=== PATIENT | female | born 1985 | race Hispanic/Latino ===

== ENCOUNTER 2020-02-21 08:41 | Emergency (ER) | payer OTHER, SELFPAY ==
--- OUTSIDE RECORDS SUMMARY | 2020-02-21 08:43 | XMS REPORT | Continuity of Care Document ---
:1985 Author Organization [facility] t Address [address] [place] [address] Care Team Providers Name Role Phone Unavailable Unavailable Unavailable Payers Payer Name Policy Type Policy Number Effective Date Expiration Date S ource Problems This patient has no known problems. Allergies, Adverse Reactions, Alerts Allergy Allergy Status Severity Reaction(s) Onset Inactive Treating Comm ents Source Name Type Date Date Clinician No Known DA Active [facility] Allergie 10-03 Clear s 00:00: Del Cid 00 [facility] Medications This patient has no known medications. Procedures This patient has no known procedures. Encounters Start End Encounter Admission Attending Care Care Encounter Source Date/Time Date/Time Type Type Clinicians Facility Department ID 2019-01-24 2019-01-24 Emergency E [facility] 7[address] [facility] 12:49:00 12:49:00 [facility] Results Test Description Test Time Test Comments Results Result Comments Source RPR SCREEN 2019-03-11 18:37:00 Test Item Value Reference Range Interpretation Comme nts SCREEN RPR (test code = NONREACTIVE NONREACTIVE SCRN RPR) NR = NON-REACTI VE R = REACTIVE ER SCREEN FOR HIV 14:05:00 Test Item Value Reference Range Interpretation Comments HIV 1/2 AB (test NEGATIVE NEGATIVE This test i s used for code = SCRN HIV) SCREENING p urposes only. All reactive re sults are prelimenary and confirmation re sults will follow. HEPATITIS C ANTIBODY [id number] 11:47:00 Test Item Value Reference Range Interpretation Comments SCRN HCV (test code NEGATIVE NEGATIVE Hepatiti s C Antibody test = SCRN HCV) is for screenin g purposes only. All react adrien will be confirmed by additional test ing. % HEMOGLOBIN A1C (GLYCATED)2019-03-11 08:17:00 Test Item Value Reference Range Interpretation Comments HEMOGLOBIN A1C (test 5.4 % 0-6 TH ERAPEUTIC TARGET code = GLYCO-) FOR THE TREAT MENT OF DIABETES M DAVE PATIENTS IS < 7 % HBA1C. [facility] 2002;25:S33-S49 LIPID [id number] 07:53:00 Test Item Value Reference Range Interpretation Comments CHOLEST (test code = 195 MG/DL 0-200 CHOLEST) TRIGLYCE (test code = 124 MG/DL 0-150 TRIGLYCE) HDL (test code = HDL) 68 MG/DL 35-90 NEGATI VE RISK FACTOR FOR HEART DISEA SE IF HDL >/=60 mg/dl MAJOR RISK FACTOR FOR HEART DISEASE IF HDL <40 mg/dL CALC LDL (test code = 102 MG/DL <100 H CALC LDL) - XR FOOT 3 + V [id number] 14:59:00 FAX: Goldy Mason [phone] [place]: St: REG Name: RANJIT HERRERA [facility] : 1985 Age/S: 34/F [address] [place] [address] Blvd Unit#: [id number] Loc: [place] [address] Phys: Goldy Mason Acct: [id number] Dis Date: Status: REG ER PHONE #: [phone] Exam Date: 01/23/2019 1452 FAX #: [phone] Reason: medial foot swelling, possible fall EXAMS: CPT CODE: [id number] XR FOOT 3 + [place] [address] LEFT FOOT, 3 VIEWS: HISTORY: Acute left foot swelling. COMPARISON EXAMS: None available. FINDINGS: Mild soft tissue swelling is identified in the forefoot. No evidence of fracture or dislocation. IMPRESSION: Soft tissue swelling without acute bony abnormality. SL:01 at 6404 Reported and signed by: Candi Alves M.D. CC: Goldy ESCOBAR Technologist: RT Mook(Isabell) Trnscrd Date/Time/By: 01/23/2019 (4740) : By: [email or web address] Orig Print D/T: S: 01/23/2019 (6099) PAGE 1 Signed Report- XR HIP W/PEL UNI 2+V [id number] 14:57:00 FAX: Luz Zaragoza MD [phone] [place]: St: REG FAX: Goldy Mason [phone] Name: RANJIT HERRERA [facility] : 1985 Age/S: 34/F [address] [place] [address] Unit #: [id number] Loc: [place] [address] Phys: Goldy Mason Acct: [id number] Dis Date: Status: REG ER PHONE #: [phone] Exam Date: 01/23/2019 1451 FAX #: [phone] Reason: L hip pain, possible fall EXAMS: CPT CODE: [id number] XR HIP W/PEL UNI 2+[place] [address] Clinical Indication: Left hip pain, possible fall. Comparison: None available. Impression: Single view of the pelvis and additional view of the left hip. No acute fracture or dislocation. Soft tissues are unremarkable. SL: [id number] at 1457 Reported and signed by: Carri Golden M.D. CC: Luz Lugo MD; Goldy ESCOBAR Technologist: ORALIA Delvalle) Trnscrd Date/Time/By: 01/23/2019 (6775) : By: [email or web address] Orig Print D/T: S: 01/23/2019 (9615) PAGE 1 Signed Report- XR KNEE 1 OR 2 V [id number] 14:55:00 FAX: Luz Zaragoza MD [phone] [place]: St: REG FAX: Goldy Mason [phone] Name: RANJIT HERRERA [facility] : 1985 Age/S: 34/F [address] [place] [address] Unit #: [id number] Loc: [place] [address] Phys: Goldy Mason Acct: [id number] Dis Date: Status: REG ER PHONE #: [phone] Exam Date: 01/23/2019 1451 FAX #: [phone] Reason: tingling L sided knee swelling, possible fall EXAMS: CPT CODE: [id number] XR KNEE 1 [place] 2 [place] [address] LEFT KNEE 2 VIEWS 01/23/2019 COMPARISON: None CLINICAL HISTORY: tingling L sided kneeswelling, possible fall FINDINGS: No acute fracture or dislocation is noted. No lytic or blastic lesion is seen. No significant joint space narrowing noted. No significant knee joint effusion is seen. CONCLUSION: No acute osseous ab normality. at 4333 Reported and signed by: Steve Mo M.D. CC: Luz Lugo MD; Goldy ESCOBAR Technologist: Terri Yanez RT(R) Trnscrd Date/Time/By: 01/23/2019 (6373) : By: [email or web address] PAGE 1 Signed Report- CT L-SPINE W/O [id number] 14:41:00 Name: RANJIT HERRERA [facility] [place] : 1985 Age/S: 34 / F [address] [place] [address] Unit #: [id number] Loc: [id number] Phys: Goldy Mason Acct: [id number] Dis Date: Status: REG ER PHONE #: [phone] Exam Date: 01/23/2019 1417 FAX #: [phone] Reason: midlinepain, paresthesias to L knee, tibia cody EXAMS: CPTCODE: [id number] CT L-SPINE W/O CONTRAST [address]338 CT lumbar spine without contrast 01/23/2019 HISTORY: Midline pain. Paresthesias to left knee PROCEDURE: Multiple axial images from the lower thoracic spine to the mid sacrum were obtained without contrast. Coronal and sagittal reconstructed images were performed FINDINGS: There is normal alignment and curvature of the lumbar spine. Vertebral body heights and intervertebral disc spaces are maintained. There is no lucency to suggest an acute fracture. No aggressive lesion is present. No dislocation is present. No prevertebral orparavertebral soft tissue swelling is noted. There is no significant spinal canal stenosis orneural foraminal narrowing at any level throughout the lumbar spine. Nonspecific gas within the sacroiliac joints is noted. IMPRESSION: 1. No acute process involving lumbar spine. No fracture or dislocation. 2. No significant spinal canal stenosis or neural foraminal narrowing at any level throughout the lumbar spine. SL: [id number] at 1446 Reported and signed by: Richard Mccollum M.D. CC: Luz Lugo MD; Goldy ESCOBAR Technologist:RT Karen(R)(CT) CTDI: DLP: Trnscb Date/Time: 01/23/2019 (6402) [email or web address] Orig Print D/T: S: 01/23/2019 (9444) PAGE 1 Signed ReportCOMPREHENSIVE METABOLIC [id number] 14:00:00 Test Item Value Reference Range Interpretation Comments SODIUM (test code = NA) 141 mEq/L 134-147 N POTASSIUM (test code = 3.8 mEq/L 3.4-5.0 N K) CHLORIDE (test code = 108 mEq/L 100-108 N CL) CARBON DIOXIDE (test 29 mEq/L 21-33 N code = CO2) ANION GAP (test code = 8 0-20 N GAP) GLUCOSE (test code = 89 mg/dL 70-110 N GLU) BLOOD UREA NITROGEN 10 mg/dL 7-18 N (test code = BUN) GLOMERULAR FILTRATION 141.2 105-110 H Units of measure = RATE (test code = GFR) ml/mi n/1.73 m2 CREATININE (test code = 0.5 mg/dL 0.6-1.3 L CREAT) TOTAL PROTEIN (test 6.9 g/dL 6.4-8.2 N code = PROT) ALBUMIN (test code = 3.20 g/dL 3.4-5.0 L ALB) CALCIUM (test code = 8.4 mg/dL 8.0-10.5 N CA) BILIRUBIN TOTAL (test 0.2 MG/DL <1.5 N code = BILT) SGOT/AST (test code = 23 IUnit/L 15-37 N AST) SGPT/ALT (test code = 23 IUnit/L 15-65 N ALT) ALKALINE PHOSPHATASE 55 IUnit/L 20-125 N TOTAL (test code = ALKP) [id number] 14:00:00 Test Item Value Reference Range Interpretation Comments LIPASE (test code = LIP) 72 IUnit/L 73-393 L HCG SERUM [id number] 14:00:00 Test Item Value Reference Range Interpretation Comments HCG SERUM QUAL (test code = SERUM NEGATIVE NEGATIVE HCGQL) COMPREHENSIVE METABOLIC [id number] 13:46:00 Test Item Value Reference Range Interpretation Comments SODIUM (test code = NA) mEq/L 134-147 POTASSIUM (test code = K) mEq/L 3.4-5.0 CHLORIDE (test code = CL) mEq/L 100-108 CARBON DIOXIDE (test code = CO2) mEq/L 21-33 ANION GAP (test code = GAP) 0-20 GLUCOSE (test code = GLU) mg/dL 70-110 BLOOD UREA NITROGEN (test code = mg/dL 7-18 BUN) GLOMERULAR FILTRATION RATE (test 105-110 code = GFR) CREATININE (test code = CREAT) mg/dL 0.6-1.3 TOTAL PROTEIN (test code = PROT) g/dL 6.4-8.2 ALBUMIN (test code = ALB) g/dL 3.4-5.0 CALCIUM (test code = CA) mg/dL 8.0-10.5 BILIRUBIN TOTAL (test code = BILT) MG/DL <1.5 SGOT/AST (test code = AST) IUnit/L 15-37 SGPT/ALT (test code = ALT) IUnit/L 15-65 ALKALINE PHOSPHATASE TOTAL (test IUnit/L 20-125 code = ALKP) [id number] 13:46:00 Test Item Value Reference Range Interpretation Comments LIPASE (test code = LIP) IUnit/L 73-393 HCG SERUM [id number] 13:46:00 Test Item Value Reference Range Interpretation Comments HCG SERUM QUAL (test code = SERUM NEGATIVE NEGATIVE HCGQL) URINALYSIS [id number] 13:42:00 Test Item Value Reference Range Interpretation Comments UA COLOR (test code = COLU) YELLOW YEL/STRAW UA APPEARANCE (test code = APPU) CLEAR CLEAR UA GLUCOSE DIPSTICK (test code = NEGATIVE NEGATIVE DGLUU) UA BILIRUBIN DIPSTICK (test code NEGATIVE NEGATIVE = BILU) UA KETONE DIPSTICK (test code = NEGATIVE NEGATIVE KETU) UA SPECIFIC GRAVITY (test code = 1.010 1.005-1.030 N SGU) UA BLOOD DIPSTICK (test code = 3+ NEGATIVE A MACRINA) UA PH DIPSTICK (test code = KANDIS) 6.0 5.0-7.0 N UA PROTEIN DIPSTICK (test code = NEGATIVE NEGATIVE PROU) UA UROBILINIOGEN DIPSTICK (test 0.2 mg/dL 0.2-1.0 code = URO) UA NITRITE DIPSTICK (test code = NEGATIVE NEGATIVE REINA) UA LEUKOCYTE ESTERASE DIPSTICK 1+ NEGATIVE A (test code = LEUU) UA RBC (test code = RBCU) 4-10 RBC/HPF 0-3 UA WBC NO REFLEX (test code = 4-9 WBC/HPF 0-3 A WBCUCL) UA BACTERIA (test code = BACU) TRACE /HPF NONE SEEN UA SQUAMOUS CELLS (test code = 6-10 /HPF NONE SEEN A SQU) PROTHROMBIN [id number] 13:41:00 Test Item Value Reference Range Interpretation Comments PROTHROMBIN TIME 11.3 SECONDS 9.3-12.9 N PATIENT (test code = PTP) INTERNATIONAL NORMAL 1.0 0.8-1.2 N TARGET RATIO (test code = INR BY IN DICATION INR) Indication INR1. Prophyl axis of venous thrombos is 2.0 - 3. 0 (orthopedic kapil brigitte), Prophylaxis of venous thrombos is (other than hig h-risk surgery), Mickie tment of Deep Vein Thrombosis/Pulm onary Embolism, Preve ntion of systemic emb olism - Tissue heart va lves, Acute Myocardia l Infarction (to prevent systemic embo lism), Valvular heart disease, Atri al Fibrillation, Bileaflet mecha nical valve in aortic position.2. Mec hanical prosthetic valv es (high risk), 2.5 - 3.5 Presence of Lupus Anticoagu lant or Antiphospholi pid Antibodies, Pre vention of systemic e mbolism - Acute Myocard ial Infarction (t o prevent recurre nt infarct). CBC W/AUTO [id number] 13:36:00 Test Item Value Reference Range Interpretation Comments WHITE BLOOD CELL (test code = 9.63 x10 3/uL 4.5-11.0 N WBC) RED BLOOD CELL (test code = 3.81 x10 6/uL 3.54-5.02 N RBC) HEMOGLOBIN (test code = HGB) 11.0 g/dL 11.0-15.0 N HEMATOCRIT (test code = HCT) 34.6 % 33.0-45.0 N MEAN CELL VOLUME (test code = 90.8 fL 81.0-99.0 N MCV) MEAN CELL HGB (test code = MCH) 28.9 pg 27.0-33.0 N MEAN CELL HGB CONCETRATION 31.8 g/dL 33.0-37.0 L (test code = MCHC) RED CELL DISTRIBUTION WIDTH CV 13.1 % 11.5-14.5 N (test code = RDW) RED CELL DISTRIBUTION WIDTH SD 42.9 fL 37.0-54.0 N (test code = RDW-SD) PLATELET COUNT (test code = 250 x10 3/uL 150-400 N PLT) MEAN PLATELET VOLUME (test code 11.0 fL 7.0-9.0 H = MPV) NEUTROPHIL % (test code = NT%) 57.2 % 56.0-77.0 N IMMATURE GRANULOCYTE % (test 0.3 % 0.0-2.0 N code = IG%) LYMPHOCYTE % (test code = LY%) 23.8 % 14.0-32.0 N MONOCYTE % (test code = MO%) 5.6 % 4.8-9.0 N EOSINOPHIL % (test code = EO%) 12.8 % 0.3-3.7 H BASOPHIL % (test code = BA%) 0.3 % 0.0-2.0 N NUCLEATED RBC % (test code = 0.0 % 0-0 N NRBC%) NEUTROPHIL # (test code = NT#) 5.51 x10 3/uL 2.0-7.6 N IMMATURE GRANULOCYTE # (test 0.03 x10 3/uL 0.00-0.03 N code = IG#) LYMPHOCYTE # (test code = LY#) 2.29 x10 3/uL 1.0-3.8 N MONOCYTE # (test code = MO#) 0.54 x10 3/uL 0.1-0.8 N EOSINOPHIL # (test code = EO#) 1.23 x10 3/uL 0.0-0.2 H BASOPHIL # (test code = BA#) 0.03 x10 3/uL 0.0-0.2 N NUCLEATED RBC # (test code = 0.00 x10 3/uL 0.0-0.1 N NRBC#) MANUAL DIFF REQUIRED (test code NO = MDIFF)
--- NOTE | 2020-02-21 09:16 | EDPHYS ---
Physician Documentation [facility] Name: Sanjuana Poon Age: 35 yrs Sex: Female : 1985 Arrival Date: 02/21/2020 Time: 08:43 Bed 7 Private MD: ED Physician Klever De Paz HPI: 02/20 09:12 This 35 yrs old Female presents to ER via Ambulatory with complaints of Fever, ma2 Headache, Body Aches. 09:12 The patient reports fever, not measured (subjective). Onset: The symptoms/episode ma2 began/occurred gradually, 2 day(s) ago. Associated signs and symptoms: Pertinent negatives: abdominal pain, arthralgias, chills, cough. Severity of symptoms: At their worst the symptoms were very mild. The patient has not experienced similar symptoms in the past. Historical: - Allergies: 09:04 No Known Allergies; iw - Home Meds: 09:04 Latuda oral oral [Active]; Doxepin Oral [Active]; iw - PSHx: 09:04 Appendectomy; Tubal ligation; iw - Immunization history:: Adult Immunizations not up to date. - Social history:: Smoking status: Patient reports the use of cigarette tobacco products, denies chronic smoking, but will smoke occasionally. - Family history:: not pertinent. ROS: 09:12 Constitutional: Negative for fever, chills, and weight loss. ma2 09:12 All other systems are negative. Exam: 09:12 Constitutional: This is a well developed, well nourished patient who is awake, alert, ma2 and in no acute distress. Head/Face: Normocephalic, atraumatic. Eyes: Pupils equal round and reactive to light, extra-ocular motions intact. Lids and lashes normal. Conjunctiva and sclera are non-icteric and not injected. Cornea within normal limits. Periorbital areas with no swelling, redness, or edema. ENT: Nares patent. No nasal discharge, no septal abnormalities noted. Tympanic membranes are normal and external auditory canals are clear. Oropharynx with no redness, swelling, or masses, exudates, or evidence of obstruction, uvula midline. Mucous membranes moist. Neck: Trachea midline, no thyromegaly or masses palpated, and no cervical lymphadenopathy. Supple, full range of motion without nuchal rigidity, or vertebral point tenderness. No Meningismus. Chest/axilla: Normal chest wall appearance and motion. Nontender with no deformity. No lesions are appreciated. Cardiovascular: Regular rate and rhythm with a normal S1 and S2. No gallops, murmurs, or rubs. Normal PMI, no JVD. No pulse deficits. Respiratory: Lungs have equal breath sounds bilaterally, clear to auscultation and percussion. No rales, rhonchi or wheezes noted. No increased work of breathing, no retractions or nasal flaring. Abdomen/GI: Soft, non-tender, with normal bowel sounds. No distension or tympany. No guarding or rebound. No evidence of tenderness throughout. MS/ Extremity: Pulses equal, no cyanosis. Neurovascular intact. Full, normal range of motion. Neuro: Awake and alert, GCS 15, oriented to person, place, time, and situation. Cranial nerves II-XII grossly intact. Motor strength 5/5 in all extremities. Sensory grossly intact. Cerebellar exam normal. Normal gait. Vital Signs: 09:01 BP 118 / 76; Pulse 88; Resp 16; Temp 98.8; Pulse Ox 98% on R/A; Weight 63.5 kg; Height iw 5 ft. 0 in. (152.40 cm); Pain 5/10; 09:01 Body Mass Index 27.34 (63.50 kg, 152.40 cm) iw MDM: 08:56 Patient medically screened. [facility] 09:12 Differential diagnosis: viral Infection, URI, bronchitis, pneumonia UTI. Data reviewed: [facility] vital signs, nurses notes. Counseling: I had a detailed discussion with the patient and/or guardian regarding: the historical points, exam findings, and any diagnostic results supporting the discharge/admit diagnosis, the presence of at least one elevated blood pressure reading (>120/80) during this emergency department visit, the need for outpatient follow up. Response to treatment: There is no appreciated change of the patient's symptoms at this time. 02/20 09:16 Order name: COVID-19 [facility] 02/20 09:16 Order name: Document PUI#; Complete Time: [facility] 02/20 09:16 Order name: Droplet/Contact Precautions; Complete Time: [facility] 02/20 09:16 Order name: Labs collected and sent; Complete Time: ma2 02/20 09:16 Order name: O2 Per Protocol; Complete Time: ma2 Administered Medications: No medications were administered Disposition: 02/21/20 09:15 Discharged to Home. Impression: Acute upper respiratory infection, unspecified. - Condition is Stable. - Discharge Instructions: Upper Respiratory Infection, Adult. - Prescriptions for Diclofenac Sodium 75 mg Oral Tablet Sustained Release - take 1 tablet by ORAL route 2 times per day; 30 tablet. - Work release form, Medication Reconciliation Form, Thank You Letter, Antibiotic Education, Prescription Opioid Use form. - Follow up: Private Physician; When: Tomorrow; Reason: Continuance of care. Signatures: Dispatcher [employer] EDViv Mancilla RN RN Antonia Rojas RN RN hb Alzahri, Mohammad, MD MD ma2 Corrections: (The following items were deleted from the chart) 09:36 09:15 02/21/2020 09:15 Discharged to Home. Impression: Acute upper respiratory hb infection, unspecified. Condition is Stable. Forms are Medication Reconciliation Form, Thank You Letter, Antibiotic Education, Prescription Opioid Use. Follow up: Private Physician; When: Tomorrow; Reason: Continuance of care. ma2
--- NOTE | 2020-02-21 09:16 | ER ---
Nurse's Notes [facility] Name: Sanjuana Poon Age: 35 yrs Sex: Female : 1985 Arrival Date: 02/21/2020 Time: 08:43 Bed 7 Private MD: Diagnosis: Acute upper respiratory infection, unspecified Presentation: 02/20 09:01 Chief complaint: Patient states: cough, sore throat, fever, headache, body aches, iw possible exposure to COVID last week at a wedding, symptoms started yesterday , temp up to 103 yesterday, has been taking ibuprofen. Coronavirus screen: Client presents with at least one sign or symptom that may indicate coronavirus-19. Standard/surgical mask placed on the client. Provider contacted for isolation considerations. Ebola Screen: Patient negative for fever greater than or equal to 101.5 degrees Fahrenheit, and additional compatible Ebola Virus Disease symptoms Patient denies exposure to infectious person. Patient denies travel to an Ebola-affected area in the 21 days before illness onset. No symptoms or risks identified at this time. Initial Sepsis Screen: Does the patient meet any 2 criteria? No. Patient's initial sepsis screen is negative. Does the patient have a suspected source of infection? No. Patient's initial sepsis screen is negative. Risk Assessment: Do you want to hurt yourself or someone else? Patient reports no desire to harm self or others. Onset of symptoms was February 20, 2020. 09:01 Method Of Arrival: Ambulatory iw 09:01 Acuity: ABDIEL 4 iw Historical: - Allergies: 09:04 No Known Allergies; iw - Home Meds: 09:04 Latuda oral oral [Active]; Doxepin Oral [Active]; iw - PSHx: 09:04 Appendectomy; Tubal ligation; iw - Immunization history:: Adult Immunizations not up to date. - Social history:: Smoking status: Patient reports the use of cigarette tobacco products, denies chronic smoking, but will smoke occasionally. - Family history:: not pertinent. Screenin:05 Abuse screen: Denies threats or abuse. Denies injuries from another. Nutritional hb screening: No deficits noted. Tuberculosis screening: No symptoms or risk factors identified. Fall Risk None identified. Assessment: 09:05 General: Appears in no apparent distress. Behavior is calm, cooperative. Pain: Pain hb currently is 5 out of 10 on a pain scale. Neuro: Level of Consciousness is awake, alert, obeys commands, Oriented to person, place, time, situation. Cardiovascular: Capillary refill < 3 seconds Patient's skin is warm and dry. Respiratory: Reports cough that is non-productive, Respiratory effort is even, unlabored, Respiratory pattern is regular, symmetrical. GI: No signs and/or symptoms were reported involving the gastrointestinal system. : No signs and/or symptoms were reported regarding the genitourinary system. EENT: No signs and/or symptoms were reported regarding the EENT system. Derm: Skin is pink, warm \T\ dry. Musculoskeletal: Reports body aches. Vital Signs: 09:01 BP 118 / 76; Pulse 88; Resp 16; Temp 98.8; Pulse Ox 98% on R/A; Weight 63.5 kg; Height iw 5 ft. 0 in. (152.40 cm); Pain 5/10; 09:01 Body Mass Index 27.34 (63.50 kg, 152.40 cm) iw ED Course: 08:43 Patient arrived in ED. ds1 08:56 Klever De Paz MD is Attending Physician. ma2 09:03 Triage completed. iw 09:04 Arm band placed on. iw 09:05 Patient has correct armband on for positive identification. Call light in reach. hb 09:34 Antonia Rojas, RN is Primary Nurse. hb 09:35 No provider procedures requiring assistance completed. Patient did not have IV access hb during this emergency room visit. Administered Medications: No medications were administered Outcome: 09:15 Discharge ordered by . ma2 09:35 Discharged to home ambulatory. hb 09:35 Condition: stable 09:35 Discharge instructions given to patient, Instructed on discharge instructions, follow up and referral plans. medication usage, Demonstrated understanding of instructions, follow-up care, medications, Prescriptions given X 1. 09:36 Patient left the ED. hb Addendum: 02/24/2020 15:03 Addendum: COVID-19 Result: Negative result given to RN to notify pt. Notified pt of s s negative COVID 19 swab results. Pt advised that even with a negative test result they should remain in isolation until symptom free for 3 days without medication. Pt also advised to return to the ED for worsening symptoms. Signatures: Diane Mena ds1 Viv Sanz, RN RN iw Jyoti Madrid RN RN ss Antonia Rojas, RN RN Klever De Paz MD MD nd2
[2020-02-21 09:45] VITALS: BP 118/76; TEMP 98.8; O2SAT 98
== END 2020-02-21 09:36 | disposition home or self-care (01) ==
LOC: ER 08:41
DX: J06.9 Acute upper respiratory infection, unspecified (principal); Z20.828 Contact with and (suspected) exposure to other viral communicable diseases
CPT/HCPCS: 99282; U0002

== ENCOUNTER 2020-03-17 07:10 | Emergency (ER) | payer SELFPAY ==
--- OUTSIDE RECORDS SUMMARY | 2020-03-17 07:14 | XMS REPORT | Continuity of Care Document ---
:1985 Author Organization [facility] t Address [address] [place] [address] Care Team Providers Name Role Phone Unavailable [...] Clear s 00:00: Del Cid 00 [facility] Medications This patient has no known medications. Procedures This patient has no known procedures. Encounters Start End Encounter Admission Attending Care Care Encounter Source Date/Time Date/Time Type Type Clinicians Facility Department ID 2019-01-24 2019-01-24 Emergency E [facility] [id number] 12:49:00 12:49:00 [facility] Results Test Description Test Time Test Comments Results Result Comments Source HIV 1/2 AB-P24 Ag Panel 2019-04-05 08:53:27 Test Item Value Reference Range Interpretation Comme nts HIV 1/2 Ab (test code = HIV 1/2 Ab) Non Reactive Non Reactive P24 Ag (test code = P24 Ag) Non Reactive Non Reactive Neg Control (test code = Neg Control) Non-Reactive Pos Control (test code = Pos Control) Reactive Lot # (test code = Lot #) [id number] N Expiration Dt (test code = Expiration Dt) 06-20-2020 N RPR [id number] 16:22:43 Test Item Value Reference Range Interpretation Comments RPR Qual (test code = RPR Qual) Non-Reactive Non-Reactive Reactive Control (test code = Reactive Reactive Control) Weak Reactive Control (test Weak Reactive code = Weak Reactive Control) Non-Reactive Control (test code Non-Reactive = Non-Reactive Control) Lot # (test code = Lot #) [id number] N Expiration Dt (test code = 01-25-2020 N Expiration Dt) Thyroid Stimulating [id number] 11:19:45 Test Item Value Reference Range Interpretation Comments TSH (test code = TSH) 1.210 mIU/mL 0.270-4.200 Lipid [id number] 11:15:12 Test Item Value Reference Range Interpretation Comments Cholesterol Total 141 mg/dL 0-200 RISK OF HE ART (test code = DISEASEPublishe d by Cholesterol Total) [place] [employer] Genie lyte Optimal Borderl ine Increased RiskC HOL <200 200-239 >2 40TRIG <150 150-199 >2 00HDL Male >60 <40H DL Female >60 <5 0LDL <100 130-159 >1 60LDL Near optimal is 100-129 Triglycerides (test 106 mg/dL 9-200 code = Triglycerides) HDL (test code = HDL) 43 mg/dL 50-60 L LDL (test code = LDL) 77 mg/dL 0-130 The eq uation being used in this calcula tion is LDL = (Chol - H DL) - (Trig / 5) VLDL (test code = 21 mg/dL 5-40 The equati on being used VLDL) in this calcula tion is VLDL = Trig / 5 Chol/HDL (test code = 3.3 ratio 0.0-4.4 Chol/HDL) LDL/HDL Ratio (test 2 N The equa tion being used code = LDL/HDL Ratio) in thi s calculation is LDL/HDL Ratio=L DL Calc/HDL Chol Urine [id number] 05:59:01 C Urine Added by GL_SJM_UA_CUL_IND<10,000 cfu/ml DiphtheroidsUrinalysis [id number] 16:52:10 Test Item Value Reference Range Interpretation Comments UA WBC (test code = UA WBC) 0-5 0-5 UA RBC (test code = UA RBC) 0-5 0-5 UA Bacteria (test code = UA Bacteria) Few A UA Squam Epithelial (test code = UA 20-29 A Squam Epithelial) Urine Drug [id number] 16:38:33 Test Item Value Reference Range Interpretation Comments Amphetamine Screen Ur Negative Negative (test code = Amphetamine Screen Ur) Barbiturate Screen Ur Negative Negative (test code = Barbiturate Screen Ur) Benzodiazepines Ur (test Negative Negative code = Benzodiazepines Ur) Cocaine Screen Ur (test POSITIVE Negative A code = Cocaine Screen Ur) U Methadone Scr (test Negative Negative code = U Methadone Scr) Opiate Screen Ur (test Negative Negative code = Opiate Screen Ur) U PCP Scrn (test code = POSITIVE Negative A U PCP Scrn) Cannabinoid Screen Ur Negative Negative (test code = Cannabinoid Screen Ur) U TCA (test code = U Negative Negative The res ults of all TCA) drug screen gerardo ts are only preliminar y. Clinical consideration a nd professional ju dgment should be appli ed to any drug of abu se test result, particularly wh en preliminary pos itive results are obt ained. Please order a separate confir matory test if desired . HCG Qualitative [id number] 16:38:00 Test Item Value Reference Range Interpretation Comments hCG Ur (test code = Negative If the r esult is hCG Ur) "Negative" in p atients suspected to be , recom mend retest with a s ample obtained 48 to 72 hours later, or by ordering a quantitative as say. If the result i s "Borderline" te sting should be repea patricio in 48 to 72 hours. Lot # (test code = [id number] N Lot #) Expiration Dt (test 04/26/2020 N code = Expiration Dt) Neg Control (test Negative code = Neg Control) Pos Control (test Positive code = Pos Control) Internal QC (test Acceptable code = Internal QC) Comprehensive Metabolic [id number] 16:34:11 Test Item Value Reference Range Interpretation Comments Sodium Level (test code = Sodium 137.0 mmol/L 135.0-145.0 Level) Potassium Level (test code = 3.9 mmol/L 3.5-5.1 Potassium Level) Chloride Level (test code = 96 mmol/L 98-105 L Chloride Level) CO2 (test code = CO2) 28 mmol/L 22-29 Anion Gap (test code = Anion 13 mmol/L 7-16 Gap) BUN (test code = BUN) 9.20 mg/dL 6.00-20.00 Creatinine Level (test code = 0.50 mg/dL 0.50-0.90 Creatinine Level) BUN/Creat Ratio (test code = 18 N BUN/Creat Ratio) Glucose Level (test code = 105 mg/dL 70-115 Glucose Level) Calcium Level (test code = 10.1 mg/dL 8.3-10.5 Calcium Level) Alk Phos (test code = Alk Phos) 77 U/L 35-104 Bilirubin Total (test code = 0.5 mg/dL 0.1-0.9 Bilirubin Total) Albumin Level (test code = 4.7 g/dL 3.5-5.2 Albumin Level) Protein Total (test code = 7.4 g/dL 6.4-8.3 Protein Total) ALT (test code = ALT) 26 U/L 1-33 AST (test code = AST) 21 U/L 1-32 Globulin (test code = Globulin) 2.7 g/dL 2.9-3.1 L A/G Ratio (test code = A/G 1.7 ratio N Ratio) Comprehensive Metabolic [id number] 16:34:11 Test Item Value Reference Range Interpretation Comments Sodium Level (test 137.0 mmol/L 135.0-145.0 code = Sodium Level) Potassium Level 3.9 mmol/L 3.5-5.1 (test code = Potassium Level) Chloride Level (test 96 mmol/L 98-105 L code = Chloride Level) CO2 (test code = 28 mmol/L 22-29 CO2) Anion Gap (test code 13 mmol/L 7-16 = Anion Gap) BUN (test code = 9.20 mg/dL 6.00-20.00 BUN) Creatinine Level 0.50 mg/dL 0.50-0.90 (test code = Creatinine Level) BUN/Creat Ratio 18 N (test code = BUN/Creat Ratio) Glucose Level (test 105 mg/dL 70-115 code = Glucose Level) Calcium Level (test 10.1 mg/dL 8.3-10.5 code = Calcium Level) Alk Phos (test code 77 U/L 35-104 = Alk Phos) Bilirubin Total 0.5 mg/dL 0.1-0.9 (test code = Bilirubin Total) Albumin Level (test 4.7 g/dL 3.5-5.2 code = Albumin Level) Protein Total (test 7.4 g/dL 6.4-8.3 code = Protein Total) ALT (test code = 26 U/L 1-33 ALT) AST (test code = 21 U/L 1-32 AST) Globulin (test code 2.7 g/dL 2.9-3.1 L = Globulin) A/G Ratio (test code 1.7 ratio N = A/G Ratio) eGFR AA (test code = >60 N eGFR (e stimated eGFR AA) mL/min/1.73 m2 Glomerular Filtration Rate ) is an estimated va lue, calculated from the patient's serum creatinine usin g the MDRD equation. It is NOT the patient 's actual GFR. The eGFR provides a more clinically usef ul measure of kidn ey disease than se rum creatinine alone.This calculation kolton es sex and race in to account, if the information is provided. If th e race is not provided, and t he patient is -Thi n, multiply by 1.2 12. If sex is not provided, and t he patient is fema le, multiply by 0.7 42. Results for pat ients <18 years of ag e have not been validated by th e MDRD study and should be interpreted wit h caution. eGFR R esult Interpretation: eGFR > or = 60 is in the Normal RangeeGF R < 60 may mean kid libby diseaseeGFR < 1 5 may mean kidney failure Rang es recommended by the National Kidney Foundation, http://nkdep.ni h.gov Alcohol [id number] 16:34:11 Test Item Value Reference Range Interpretation Comments Ethanol Level (test <0.00 g/dL 0.00-0.01 Intoxica patricio 0.080 g/dL code = Ethanol or more Level) Ethanol Inst (test <0 N code = Ethanol Inst) Comprehensive Metabolic [id number] 16:34:11 Test Item Value Reference Range Interpretation Comments Sodium Level (test 137.0 mmol/L 135.0-145.0 code = Sodium Level) Potassium Level 3.9 mmol/L 3.5-5.1 (test code = Potassium Level) Chloride Level (test 96 mmol/L 98-105 L code = Chloride Level) CO2 (test code = 28 mmol/L 22-29 CO2) Anion Gap (test code 13 mmol/L 7-16 = Anion Gap) BUN (test code = 9.20 mg/dL 6.00-20.00 BUN) Creatinine Level 0.50 mg/dL 0.50-0.90 (test code = Creatinine Level) BUN/Creat Ratio 18 N (test code = BUN/Creat Ratio) Glucose Level (test 105 mg/dL 70-115 code = Glucose Level) Calcium Level (test 10.1 mg/dL 8.3-10.5 code = Calcium Level) Alk Phos (test code 77 U/L 35-104 = Alk Phos) Bilirubin Total 0.5 mg/dL 0.1-0.9 (test code = Bilirubin Total) Albumin Level (test 4.7 g/dL 3.5-5.2 code = Albumin Level) Protein Total (test 7.4 g/dL 6.4-8.3 code = Protein Total) ALT (test code = 26 U/L 1-33 ALT) AST (test code = 21 U/L 1-32 AST) Globulin (test code 2.7 g/dL 2.9-3.1 L = Globulin) A/G Ratio (test code 1.7 ratio N = A/G Ratio) eGFR AA (test code = >60 N eGFR (e stimated eGFR AA) mL/min/1.73 m2 Glomerular Filtration Rate ) is an estimated va lue, calculated from the patient's serum creatinine usin g the MDRD equation. It is NOT the patient 's actual GFR. The eGFR provides a more clinically usef ul measure of kidn ey disease than se rum creatinine alone.This calculation kolton es sex and race in to account, if the information is provided. If th e race is not provided, and t he patient is -Thi n, multiply by 1.2 12. If sex is not provided, and t he patient is fema le, multiply by 0.7 42. Results for pat ients <18 years of ag e have not been validated by th e MDRD study and should be interpreted wit h caution. eGFR R esult Interpretation: eGFR > or = 60 is in the Normal RangeeGF R < 60 may mean kid libby diseaseeGFR < 1 5 may mean kidney failure Rang es recommended by the National Kidney Foundation, http://nkdep.ni h.gov eGFR Non-AA (test >60.00 N eGFR (jocy mated code = eGFR Non-AA) mL/min/1.73 m2 Glomer ular Filtration Rate ) is an estimated va lue, calculated from the patient's serum creatinine usin g the MDRD equation. It is NOT the patient 's actual GFR. The eGFR provides a more clinically usef ul measure of kidn ey disease than se rum creatinine alone.This calculation kolton es sex and race in to account, if the information is provided. If th e race is not provided, and t he patient is -Thi n, multiply by 1.2 12. If sex is not provided, and t he patient is fema le, multiply by 0.7 42. Results for pat ients <18 years of ag e have not been validated by th e MDRD study and should be interpreted wit h caution. eGFR R esult Interpretation: eGFR > or = 60 is in the Normal RangeeGF R < 60 may mean kid libby diseaseeGFR < 1 5 may mean kidney failure Rang es recommended by the National Kidney Foundation, http://nkdep.ni h.gov Urinalysis with Culture, if [id number] 16:19:37 Test Item Value Reference Range Interpretation Comments UA Color (test code = YELLO Yellow UA Color) UA Appear (test code = CLEAR Clear UA Appear) UA pH (test code = UA 6.5 pH) UA Spec Grav (test code 1.009 1.001-1.035 = UA Spec Grav) UA Glucose (test code = NEG Negative UA Glucose) UA Bili (test code = UA NEG Negative Bili) UA Ketones (test code = NEG Negative UA Ketones) UA Blood (test code = NEG Negative UA Blood) UA Protein (test code = NEG Negative UA Protein) UA Urobilinogen (test 1 mg/dL >0.2 A code = UA Urobilinogen) UA Nitrite (test code = NEG Negative UA Nitrite) UA Leuk Est (test code 25 cells/mcL Negative A = UA Leuk Est) UA Micro Ind? (test Indicated Not Indicated A Result created by code = UA Micro Ind?) rule GL_SJM_UA_MICRO _IN D Complete Blood Count with [id number] 16:13:46 Test Item Value Reference Range Interpretation Comments WBC (test code = WBC) 8.7 x10 4.4-10.5 RBC (test code = RBC) 5.12 x10 3.75-5.20 Hgb (test code = Hgb) 14.5 g/dL 12.2-14.8 Hct (test code = Hct) 43.1 % 36.5-44.4 MCV (test code = MCV) 84.20 fL 80.00-100.00 MCHC (test code = 33.60 g/dL 32.00-37.50 MCHC) RDW CV (test code = 12.8 % 11.5-14.5 RDW CV) MCH (test code = MCH) 28.3 pg 27.0-32.5 Platelets (test code = 382.0 x10 140.0-440.0 Platelets) MPV (test code = MPV) 10.2 fL N Slide Review (test Auto Auto Result cr eated by code = Slide Review) GL_SJM_ SLIDE_REV_AUTO nRBC (test code = 0 N nRBC) NRBC Abs (test code = 0.00 x10 N NRBC Abs) IPF (test code = IPF) 0 % N Automated [id number] 16:13:46 Test Item Value Reference Range Interpretation Comments Neutro Auto (test code = Neutro 52.0 % 36.0-70.0 Auto) Lymph Auto (test code = Lymph Auto) 34.9 % 12.0-44.0 Mohave Auto (test code = Mohave Auto) 6.1 % 0.0-11.0 Eos, Auto (test code = Eos, Auto) 6.3 % 0.0-7.0 Basophil Auto (test code = Basophil 0.5 % 0.0-2.0 Auto) Neutro Absolute (test code = Neutro 4.5 x10 1.6-7.4 Absolute) Lymph Absolute (test code = Lymph 3.04 x10 .50-4.60 Absolute) Mohave Absolute (test code = Mohave .53 x10 .00-1.20 Absolute) Eos Absolute (test code = Eos 0.55 x10 0.00-0.74 Absolute) Baso Absolute (test code = Baso 0.04 x10 0.00-0.21 Absolute) IG [id number] 16:13:46 Test Item Value Reference Range Interpretation Comments IG (test code = IG) 0.2 % 0.0-5.0 IG Abs (test code = IG Abs) 0 x10 N RPR [id number] 18:37:00 Test Item Value Reference Range Interpretation Comments SCREEN RPR (test NONREACTIVE NONREACTIVE code = SCRN RPR) NR = NON-REACTIVE R = REACTIVE ER SCREEN FOR HIV 14:05:00 Test Item Value Reference Range Interpretation Comments HIV 1/2 AB (test NEGATIVE NEGATIVE This test i s used for code = SCRN HIV) SCREENING p urposes only. All reactive re sults are prelimenary and confirmation re sults will follow. HEPATITIS C ANTIBODY [id number] 11:47:00 Test Item Value Reference Range Interpretation [...] DAVE PATIENTS IS < 7 % HBA1C. [facility] [employer] [employer] DIABETES [facility] 2002;25:S33-S49 LIPID [id number] 07:53:00 Test Item Value Reference Range Interpretation [...] LDL) - XR FOOT 3 + V [id number] 14:59:00 FAX: Goldy Mason [phone] [place]: St: REG Name: RANJIT HERRERA [facility] [place] : 1985 Age/S: 34/F [address] [place] [address] Unit#: [id number] Loc: [place] [address] Phys: Goldy Mason Acct: [id number] Dis Date: Status: REG ER PHONE #: [phone] Exam Date: 01/23/2019 1452 FAX #: [phone] Reason: medial foot swelling, possible fall EXAMS: CPT CODE: [id number] XR FOOT 3 + [place] [address] LEFT FOOT, 3 VIEWS: HISTORY: Acute left foot swelling. COMPARISON EXAMS: None available. FINDINGS: Mild soft tissue swelling is identified in the forefoot. No evidence of fracture or dislocation. IMPRESSION: Soft tissue swelling without acute bony abnormality. SL:01 at 4040 Reported and signed by: Candi Alves M.D. CC: Goldy ESCOBAR Technologist: RT Mook(Isabell) Trnscrd Date/Time/By: 01/23/2019 (0763) : By: EleanorJ Orig Print D/T: S: 01/23/2019 (6772) PAGE 1 Signed Report- XR HIP W/PEL UNI 2+V [id number] 14:57:00 FAX: Luz Zaragoza MD [phone] [place]: St: REG FAX: Goldy Mason [phone] Name: RANJIT HERRERA [facility] : 1985 Age/S: 34/F [address] [place] [address] Unit #: [id number] Loc: [place] [address] Phys: Goldy Mason Acct: [id number] Dis Date: Status: REG ER PHONE #: [phone] Exam Date: 01/23/2019 1451 FAX #: [phone] Reason: L hip pain, possible fall EXAMS: CPT CODE: [id number] XR HIP W/PEL UNI 2+[place] [address] Clinical Indication: Left hip pain, possible fall. Comparison: None available. Impression: Single view of the pelvis and additional view of the left hip. No acute fracture or dislocation. Soft tissues are unremarkable. SL: [id number] at 3845 Reported and signed by: Carri Golden M.D. CC: Luz Lugo MD; Goldy ESCOBAR Technologist: RT Mook(Isabell) Trnscrd Date/Time/By: 01/23/2019 (0162) : By: [email or web address] Orig Print D/T: S: 01/23/2019 (6906) PAGE 1 Signed Report- XR KNEE 1 OR 2 V [id number] 14:55:00 FAX: Luz Zaragoza MD [phone] [place]: St: REG FAX: Goldy Mason [phone] Name: RANJIT HERRERA [facility] [place] : 1985 Age/S: 34/F [address] [place] [address] Unit #: [id number] Loc: [place] [address] Phys: Goldy Mason Acct: [id number] Dis Date: Status: REG ER PHONE #: [phone] Exam Date: 01/23/2019 1451 FAX #: [phone] Reason: tingling L sided knee swelling, possible fall EXAMS: CPT CODE: [id number] XR KNEE 1 [place] 2 [place] [address] LEFT KNEE 2 VIEWS 01/23/2019 COMPARISON: None CLINICAL HISTORY: tingling L sided kneeswelling, possible fall FINDINGS: No acute fracture or dislocation is noted. No lytic or blastic lesion is seen. No significant joint space narrowing noted. No significant knee joint effusion is seen. CONCLUSION: No acute osseous ab normality. at 3822 Reported and signed by: Steve Mo M.D. CC: Luz Lugo MD; Goldy ESCOBAR Technologist: RT Mook(Isabell) Trnscrd Date/Time/By: 01/23/2019 (5385) : By: [email or web address] PAGE 1 Signed Report- CT L-SPINE W/O [id number] 14:41:00 Name: RANJIT HERRERA [facility] : 1985 Age/S: 34 / F [address] [place] [address] Unit #: [id number] Loc: [place] Phys: Goldy Mason Acct: [id number] Dis Date: Status: REG ER PHONE #: [phone] Exam Date: 01/23/2019 1417 FAX #: [phone] Reason: midlinepain, paresthesias to L knee, tibia cody EXAMS: CPTCODE: [id number] CT L-SPINE W/O CONTRAST 40410 CT lumbar spine without contrast 01/23/2019 HISTORY: [...] any level throughout the lumbar spine. SL: [id number] at 1441 Reported and signed by: Richard Mccollum M.D. CC: Luz Lugo MD; Goldy ESCOBAR Technologist:RT Karen(R)(CT) CTDI: DLP: Trnscb Date/Time: 01/23/2019 (1440) [email or web address] Orig Print D/T: S: 01/23/2019 (3345) PAGE 1 Signed ReportCOMPREHENSIVE METABOLIC [id number] 14:00:00 Test Item Value Reference Range Interpretation [...] 20-125 N TOTAL (test code = ALKP) [id number] 14:00:00 Test Item Value Reference Range Interpretation Comments LIPASE (test code = LIP) 72 IUnit/L 73-393 L HCG SERUM [id number] 14:00:00 Test Item Value Reference Range Interpretation Comments HCG SERUM QUAL (test code = SERUM NEGATIVE NEGATIVE HCGQL) COMPREHENSIVE METABOLIC [id number] 13:46:00 Test Item Value Reference Range Interpretation [...] TOTAL (test IUnit/L 20-125 code = ALKP) [id number] 13:46:00 Test Item Value Reference Range Interpretation Comments LIPASE (test code = LIP) IUnit/L 73-393 HCG SERUM [id number] 13:46:00 Test Item Value Reference Range Interpretation Comments HCG SERUM QUAL (test code = SERUM NEGATIVE NEGATIVE HCGQL) URINALYSIS [id number] 13:42:00 Test Item Value Reference Range Interpretation [...] 6-10 /HPF NONE SEEN A SQU) PROTHROMBIN [id number] 13:41:00 Test Item Value Reference Range Interpretation [...] o prevent recurre nt infarct). CBC W/AUTO [id number] 13:36:00 Test Item Value Reference Range Interpretation [...]
[2020-03-17] MEDS ORDERED: ACETAMINOPHEN 500 MG TAB ONE (07:56)
[2020-03-17] MEDS ORDERED: FAMOTIDINE 20 MG TAB ONE (08:07)
[2020-03-17] MEDS ORDERED: predniSONE 20 MG TAB ONE (08:07)
--- NOTE | 2020-03-17 09:46 | EDPHYS ---
Physician Documentation [facility] Name: Sanjuana Poon Age: 35 yrs Sex: Female : 1985 Arrival Date: 03/17/2020 Time: 07:13 Bed 19 Private MD: ED Physician Perfecto Ribera HPI: 03/17 07:39 This 35 yrs old Female presents to ER via Ambulatory with complaints of Sore kdr Throat, Cough. 07:39 The patient presents with sore throat. The patient describes throat pain as dry. Onset: kdr The symptoms/episode began/occurred gradually, yesterday. Severity of symptoms: At their worst the symptoms were mild, in the emergency department the symptoms are unchanged. Modifying factors: The symptoms are alleviated by nothing, the symptoms are aggravated by nothing. Associated signs and symptoms: Pertinent positives: cough, fever, Sore throat myalgia/arthralgia. The patient has not experienced similar symptoms in the past. The patient has not recently seen a physician. The patient was stable in the ED. Historical: - Allergies: 07:20 No Known Allergies; sv - Home Meds: 07:35 Latuda Oral [Active]; hydroxyzine HCl 50 mg Oral tab [Active]; zb - PMHx: 07:35 Depression; Anxiety; zb - PSHx: 07:20 Appendectomy; Tubal ligation; D \T\ C; sv - Immunization history:: Adult Immunizations up to date, Flu vaccine is not up to date. - Social history:: Smoking status: Patient reports the use of cigarette tobacco products, denies chronic smoking, but will smoke occasionally. ROS: 07:39 Constitutional: Negative for chills, and weight loss - hsa had subjective fever Eyes: kdr Negative for injury, pain, redness, and discharge, Neck: Negative for injury, pain, and swelling, Cardiovascular: Negative for chest pain, palpitations, and edema, Abdomen/GI: Negative for abdominal pain, nausea, vomiting, diarrhea, and constipation, Back: Negative for injury and pain, : Negative for injury, bleeding, discharge, and swelling, MS/Extremity: Negative for injury and deformity, Skin: Negative for injury, rash, and discoloration, Neuro: Negative for headache, weakness, numbness, tingling, and seizure activity. Psych: Negative for depression, anxiety, suicide ideation, homicidal ideation, and hallucinations, Allergy/Immunology: Negative for hives, rash, and allergies, Endocrine: Negative for neck swelling, polydipsia, polyuria, polyphagia, and marked weight changes, Hematologic/Lymphatic: Negative for swollen nodes, abnormal bleeding, and unusual bruising. 07:39 ENT: Positive for sore throat, myalgia, arthralgia. Exam: 07:39 Constitutional: This is a well developed, well nourished patient who is awake, alert, kdr and in no acute distress. Head/Face: Normocephalic, atraumatic. Neck: Trachea midline, no thyromegaly or masses palpated, and no cervical lymphadenopathy. Supple, full range of motion without nuchal rigidity, or vertebral point tenderness. No Meningismus. Chest/axilla: Normal chest wall appearance and motion. Nontender with no deformity. No lesions are appreciated. Skin: Warm, dry with normal turgor. Normal color with no rashes, no lesions, and no evidence of cellulitis. MS/ Extremity: Pulses equal, no cyanosis. Neurovascular intact. Full, normal range of motion. Neuro: Awake and alert, GCS 15, oriented to person, place, time, and situation. Cranial nerves II-XII grossly intact. Motor strength 5/5 in all extremities. Sensory grossly intact. Cerebellar exam normal. Normal gait. Psych: Awake, alert, with orientation to person, place and time. Behavior, mood, and affect are within normal limits. Vital Signs: 07:18 Weight 65.77 kg; Height 5 ft. 0 in. (152.40 cm); sv 07:20 BP 104 / 76; Pulse 85; Resp 16; Temp 98.5(O); Pulse Ox 98% on R/A; Height 5 ft. 0 in. zb (152.40 cm); 08:20 BP 90 / 64; Pulse 79; Resp 16; Pulse Ox 97% on R/A; zb 09:10 BP 106 / 76; Pulse 89; Resp 16; Pulse Ox 100% on R/A; zb 10:00 BP 103 / 78; Pulse 89; Resp 18; Pulse Ox 100% on R/A; zb 07:20 Body Mass Index 28.32 (65.77 kg, 152.40 cm) zb MDM: 07:39 Data reviewed: vital signs, nurses notes, lab test result(s), radiologic studies. kdr Counseling: I had a detailed discussion with the patient and/or guardian regarding: the historical points, exam findings, and any diagnostic results supporting the discharge/admit diagnosis, lab results, the need for outpatient follow up. 09:45 Patient medically screened. kdr 03/17 07:39 Order name: Flu; Complete Time: 09:29 kdr 03/17 07:39 Order name: Strep; Complete Time: : kdr 03/17 09:43 Order name: SARS-COV-2 RT PCR EDMS Administered Medications: 07:48 Drug: Tylenol 1000 mg Route: PO; zb 07:54 Drug: Pepcid 20 mg Route: PO; zb 07:55 Drug: predniSONE 20 mg Route: PO; zb Disposition: 03/17/20 09:45 Discharged to Home. Impression: Streptococcal pharyngitis, Acute pharyngitis, Coronavirus as the cause of diseases classified elsewhere. - Condition is Stable. - Discharge Instructions: Pharyngitis, Strep Throat, [id number], COVID-19. - Prescriptions for prednisone 10 mg Oral tablet - take 1 tablet by ORAL route 2 times per day for 5 days Take this prescription second - this is the second of two; 10 tablet. prednisone 20 mg Oral tablet - take 1 tablet by ORAL route 2 times per day Take this prescription first - this is the first of two; 10 tablet. Augmentin 875- 125 mg Oral Tablet - take 1 tablet by ORAL route every 12 hours for 10 days; 20 tablet. Tessalon Perles 100 mg Oral Capsule - take 1 capsule by ORAL route every 8 hours As needed; 15 capsule. Tramadol 50 mg Oral Tablet - take 1 tablet by ORAL route every 8 hours as needed; 12 tablet. - Medication Reconciliation Form, Thank You Letter, Antibiotic Education, Prescription Opioid Use form. - Follow up: Private Physician; When: 2 - 3 days; Reason: If symptoms return, Further diagnostic work-up, Recheck today's complaints, Continuance of care, Re-evaluation by your physician. - Problem is new. - Symptoms are unchanged. Signatures: Dispatcher [employer] Mariluz Winter RN RN sv Rittger, Kevin, MD MD kdr Brown, Zipporah, RN RN zcelina Corrections: (The following items were deleted from the chart) 07:35 07:20 PMHx: None; sv zb 08:34 07:40 CORONAVIRUS+MR.LAB.BRZ ordered. [facility] EDMS 09:56 09:45 03/17/2020 09:45 Discharged to Home. Impression: Streptococcal pharyngitis; Acute kdr pharyngitis. Condition is Stable. Forms are Medication Reconciliation Form, Thank You Letter, Antibiotic Education, Prescription Opioid Use. Follow up: Private Physician; When: 2 - 3 days; Reason: If symptoms return, Further diagnostic work-up, Recheck today's complaints, Continuance of care, Re-evaluation by your physician. Problem is new. Symptoms are unchanged. kdr 10:52 09:56 03/17/2020 09:45 Discharged to Home. Impression: Streptococcal pharyngitis; Acute zb pharyngitis; Coronavirus as the cause of diseases classified elsewhere. Condition is Stable. Discharge Instructions: Pharyngitis, Strep Throat, [id number], COVID-19. Prescriptions for prednisone 10 mg Oral tablet - take 1 tablet by ORAL route 2 times per day for 5 days Take this prescription second - this is the second of two; 10 tablet, prednisone 20 mg Oral tablet - take 1 tablet by ORAL route 2 times per day Take this prescription first - this is the first of two; 10 tablet, Augmentin 875-125 mg Oral Tablet - take 1 tablet by ORAL route every 12 hours for 10 days; 20 tablet, Tessalon Perles 100 mg Oral Capsule - take 1 capsule by ORAL route every 8 hours As needed; 15 capsule, Tramadol 50 mg Oral Tablet - take 1 tablet by ORAL route every 8 hours as needed; 12 tablet. and Forms are Medication Reconciliation Form, Thank You Letter, Antibiotic Education, Prescription Opioid Use. Follow up: Private Physician; When: 2 - 3 days; Reason: If symptoms return, Further diagnostic work-up, Recheck today's complaints, Continuance of care, Re-evaluation by your physician. Problem is new. Symptoms are unchanged. kdr
--- NOTE | 2020-03-17 09:46 | ER ---
Nurse's Notes [facility] Name: Sanjuana Poon Age: 35 yrs Sex: Female : 1985 Arrival Date: 03/17/2020 Time: 07:13 Bed 19 Private MD: Diagnosis: Streptococcal pharyngitis;Acute pharyngitis;Coronavirus as the cause of diseases classified elsewhere Presentation: 03/17 07:18 Chief complaint: Patient states: cough, body aches, loss of taste, and sore throat x 2 sv days. +COVID exposure. Coronavirus screen: Client denies travel out of the [place] in the last 14 days. Client presents with at least one sign or symptom that may indicate coronavirus-19. Standard/surgical mask placed on the client. Provider contacted for isolation considerations. Ebola Screen: No symptoms or risks identified at this time. Risk Assessment: Do you want to hurt yourself or someone else? Patient reports no desire to harm self or others. Onset of symptoms was March 15, 2020. 07:18 Method Of Arrival: Ambulatory sv 07:18 Acuity: ABDIEL 4 sv 07:20 Initial Sepsis Screen: Does the patient meet any 2 criteria? No. Patient's initial zb sepsis screen is negative. Does the patient have a suspected source of infection? No. Patient's initial sepsis screen is negative. Historical: - Allergies: 07:20 No Known Allergies; sv - Home Meds: 07:35 Latuda Oral [Active]; hydroxyzine HCl 50 mg Oral tab [Active]; zb - PMHx: 07:35 Depression; Anxiety; zb - PSHx: 07:20 Appendectomy; Tubal ligation; D \T\ C; sv - Immunization history:: Adult Immunizations up to date, Flu vaccine is not up to date. - Social history:: Smoking status: Patient reports the use of cigarette tobacco products, denies chronic smoking, but will smoke occasionally. Screenin:20 Abuse screen: Denies threats or abuse. Denies injuries from another. Nutritional zb screening: No deficits noted. Tuberculosis screening: No symptoms or risk factors identified. Fall Risk None identified. Assessment: 07:20 General: Appears in no apparent distress. uncomfortable, Behavior is calm, cooperative, zb appropriate for age, Reports feeling ill for 2-3 days, fatigue for 2-3 days, Denies fever. Neuro: Level of Consciousness is awake, alert, obeys commands, Oriented to person, place, time, situation. Cardiovascular: Heart tones S1 S2 present Capillary refill < 3 seconds in bilateral fingers Patient's skin is warm and dry. Respiratory: Reports shortness of breath cough that is Airway is patent Respiratory effort is even, unlabored, Respiratory pattern is regular, symmetrical, Breath sounds are clear bilaterally. Onset: The symptoms/episode began/occurred yesterday, the patient has mild shortness of breath. GI: Abdomen is flat, non-distended, Bowel sounds present X 4 quads. : No signs and/or symptoms were reported regarding the genitourinary system. EENT: Throat is clear has enlarged tonsils. Derm: Skin is intact, is healthy with good turgor, Skin is dry, Skin is normal, Skin temperature is warm. Musculoskeletal: Circulation, motion, and sensation intact. Capillary refill < 3 seconds, in bilateral fingers. Range of motion: intact in all extremities. 07:20 Pain: Complains of pain in generalized bodyaches Pain currently is 2 out of 10 on a zb pain scale. 08:20 Reassessment: Patient appears in no apparent distress at this time. Patient is alert, zb oriented x 3, equal unlabored respirations, skin warm/dry/pink. pt lying in bed resting no c/o at this time. 09:08 Reassessment: Patient appears in no apparent distress at this time. Patient is alert, zb oriented x 3, equal unlabored respirations, skin warm/dry/pink. pt states she is feeling better decrease body aches Patient denies pain at this time. 10:08 Reassessment: Patient appears in no apparent distress at this time. No changes from zb previously documented assessment. Patient is alert, oriented x 3, equal unlabored respirations, skin warm/dry/pink. d/c pending provider discussion. 10:40 Reassessment: Patient appears in no apparent distress at this time. No changes from zb previously documented assessment. discussed d/c instructions. PVU. no additional questions at this time. Vital Signs: 07:18 Weight 65.77 kg; Height 5 ft. 0 in. (152.40 cm); sv 07:20 BP 104 / 76; Pulse 85; Resp 16; Temp 98.5(O); Pulse Ox 98% on R/A; Height 5 ft. 0 in. zb (152.40 cm); 08:20 BP 90 / 64; Pulse 79; Resp 16; Pulse Ox 97% on R/A; zb 09:10 BP 106 / 76; Pulse 89; Resp 16; Pulse Ox 100% on R/A; zb 10:00 BP 103 / 78; Pulse 89; Resp 18; Pulse Ox 100% on R/A; zb 07:20 Body Mass Index 28.32 (65.77 kg, 152.40 cm) zb ED Course: 07:13 Patient arrived in ED. as 07:15 Perfecto Ribera MD is Attending Physician. kdr 07:16 Yolanda Barahona, RN is Primary Nurse. zb 07:19 Triage completed. sv 07:20 Arm band placed on Patient placed in an exam room, on a stretcher. sv 07:20 Patient has correct armband on for positive identification. Bed in low position. Call zb light in reach. Pulse ox on. NIBP on. Door closed. Noise minimized. Warm blanket given. 10:51 No provider procedures requiring assistance completed. Patient did not have IV access zb during this emergency room visit. Administered Medications: 07:48 Drug: Tylenol 1000 mg Route: PO; zb 07:54 Drug: Pepcid 20 mg Route: PO; zb 07:55 Drug: predniSONE 20 mg Route: PO; zb Outcome: 09:45 Discharge ordered by . kdr 10:51 Discharged to home ambulatory. zb 10:51 Condition: stable 10:51 Discharge instructions given to patient, Instructed on discharge instructions, follow up and referral plans. medication usage, Covid quarantining Demonstrated understanding of instructions, follow-up care, medications, Prescriptions given X 5 10:52 Patient left the ED. zb Signatures: Mariluz Ritter RN RN Perfecto Oseguera MD MD kdr Martinez, Amelia as Yolanda Barahona, SHARI RN zb Corrections: (The following items were deleted from the chart) 07:35 07:20 PMHx: None; sv zb
[2020-03-18 07:08] VITALS: TEMP 98.5
[2020-03-18 07:11] VITALS: BP 106/76; O2SAT 100
== END 2020-03-17 10:52 | disposition home or self-care (01) ==
LOC: ER 07:10
DX: U07.1 COVID-19 (principal); J02.0 Streptococcal pharyngitis; F41.8 Other specified anxiety disorders; Z72.0 Tobacco use
CPT/HCPCS: 87081; 87804; 99283; J7512; U0003

== ENCOUNTER 2024-05-21 06:05 | Emergency (ER) | payer BC, SELFPAY ==
[2024-05-21] MEDS ORDERED: HYDROCODONE/APAP 5/325 MG TAB ONE (06:58)
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
[2024-05-21 09:35] VITALS: TEMP 97.2
[2024-05-21 09:38] VITALS: BP 114/68; O2SAT 99
== END 2024-05-21 09:27 | disposition home or self-care (01) ==
LOC: ER 06:05
DX: S20.211A Contusion of right front wall of thorax, initial encounter (principal); V49.49XA Driver injured in collision with other motor vehicles in traffic accident, initial encounter
CPT/HCPCS: 36415; 71250; 84484; 93005